=== PATIENT | male | born 1945 | race African-American/Black ===

== ENCOUNTER 2016-08-09 11:30 | Emergency (ER) | payer MEDICARE, OTHER ==
[~2016-08-09] VITALS: Wt 84.0 kg
[~2016-08-09 11:30] MED LIST: AMLO-147 PO; ASPI-535; GLIP-95 PO; LISI40TA9 PO; METF-388 PO; METO-53 PO; SMV40T PO; [UNRECOGNIZED DRUG - CODE] PO
[2016-08-09 12:24] LABS: BASOPHILS % 0.3 % (0.0-2.0); EOSINOPHILS # 0.1 10^3/ul (0.0-0.5); EOSINOPHILS % 1.1 % (0.0-7.0); HEMATOCRIT 37.3 % (42.0-52.0); HEMOGLOBIN 12.3 g/dl (14.0-18.0); LYMPHOCYTES # 2.4 10^3/ul (0.8-2.9); LYMPHOCYTES % 40.7 % (15.0-51.0); MEAN CORPUSCULAR HEMOGLOBIN 27.5 pg (29.0-33.0); MEAN CORPUSCULAR VOLUME 83.3 fl (82.0-101.0); MEAN PLATELET VOLUME 8.5 fl (7.4-10.4); MONOCYTE # 0.4 10^3/ul (0.3-0.9); MONOCYTES % 6.7 % (0.0-11.0); NEUTROPHILS % 51.2 % (39.0-77.0); PLATELET COUNT 200 10^3/UL (140-440); RED BLOOD COUNT 4.48 10^6/ul (4.70-6.10); RED CELL DISTRIBUTION WIDTH 14.8 % (11.5-14.5); UNCORRECTED WBC 5.9 10^3/ul (4.8-10.8); WHITE BLOOD COUNT 5.9 10^3/ul (4.8-10.8)
[2016-08-09] MEDS ORDERED: ASPIRIN 81 MG TAB PO ONE (12:30)
[2016-08-09 12:32] LABS: CHLORIDE 105 mmol/L (97-110); NUCLEATED RED BLOOD CELLS # 0.1 10^3/ul (0.0-0.0); POTASSIUM 4.3 mmol/L (3.5-5.1); SODIUM 145 mmol/L (135-144)
[2016-08-09 12:33] LABS: CONDITION 1; LH ANALYZER COMMENTS 1
[2016-08-09 12:34] LABS: CREATININE 0.92 mg/dl (0.61-1.24)
[2016-08-09 12:35] LABS: ANION GAP 15 (8-16); BLOOD UREA NITROGEN 16 mg/dl (7-20); CALCIUM 9.4 mg/dl (8.4-10.2); CARBON DIOXIDE 29 mmol/L (21-31); GLUCOSE 162 mg/dl (70-220)
[2016-08-09 12:38] LABS: INR 0.99; PROTIME 13.1 Sec (12.2-14.2)
[2016-08-09 12:39] LABS: PARTIAL THROMBOPLASTIN TIME 27.1 Sec (25.0-35.0)
--- NOTE | 2016-08-09 12:42 | RADRPT ---
PROCEDURE: Chest x-ray CLINICAL INDICATION: Pain. TECHNIQUE: One-view frontal. COMPARISON: 06/23/2012 FINDINGS: The cardiac silhouette is normal. No infiltrates are noted. No hilar abnormalities are identified. No pneumothorax or pleural effusions are visualized. IMPRESSION: 1. No active cardiopulmonary changes. RPTAT: HH .Aurelio Gramajo MD, MD Date Time Electronically viewed and signed by .Aurelio Gramajo MD, MD on 08/09/2016 12:42 .G/
[2016-08-09 12:48] LABS: TROPONIN-I < 0.010 ng/ml (0.00-0.12)
[2016-08-09] MEDS ORDERED: GLIP-95 PO (12:59)
[2016-08-09] MEDS ORDERED: METO25TA7 PO (13:01)
[2016-08-09] MEDS ORDERED: GABA300C16 PO (13:01)
[2016-08-09] MEDS ORDERED: TAMS-14 PO (13:02)
[2016-08-09] MEDS ORDERED: IBRU140C PO (13:03)
--- NOTE | 2016-08-09 13:04 | ERD ---
ER Documentation Chief Complaint Date/Time DATE: 08/09/16 TIME: 13:03 Chief Complaint CHEST PAIN, ONSET TODAY, MILD SOB, NO N/V, NO DIZZINESS HPI Patient is a 71-year-old male with hypertension and diabetes who presents with chest pain. He started this morning with chest pain and says that it was a bit out of the ordinary and it was a "tightness". It only lasted seconds and then went away and he said he has no pain at this time. He was concerned for possible heart attack. Upon review of old medical records the patient one previous visit to the ER in 2010. His primary doctor is Dr. Diaz and he does not have a manager validation. ROS All systems reviewed and are negative except as per history of present illness. Medications Home Meds Reported Medications Simvastatin* (Zocor*) 20 Mg Tablet, 20 MG PO QHS, #30 TAB 08/09/16 Ibrutinib (Imbruvica) 140 Mg Capsule, 420 MG PO DAILY, CAP 08/09/16 Tamsulosin Hcl* (Flomax*) 0.4 Mg Cap.er.24h, 0.4 MG PO DAILY, CAP 08/09/16 Gabapentin* (Gabapentin*) 300 Mg Capsule, 300 MG PO QID, #60 CAP 08/09/16 Metoprolol Succinate* (Toprol XL*) 25 Mg Tab.sr.24h, 25 MG PO DAILY, #30 TAB 08/09/16 Glipizide* (Glipizide*) 10 Mg Tablet, 20 MG PO BID, TAB 08/09/16 Amlodipine Besylate* (Amlodipine Besylate*) 10 Mg Tablet, 15 MG PO DAILY 06/23/12 Lisinopril* (Lisinopril*) 40 Mg Tablet, 40 MG PO BID 06/23/12 Metformin Hcl* (Metformin Hcl*) 1,000 Mg Tablet, 1000 MG PO BID 09/25/11 Discontinued Reported Medications Vitamin E (Vitamin E) 100 Unit Capsule, 100 UNIT PO DAILY 06/23/12 Metoprolol (Lopressor) 50 Mg Tablet, 50 MG PO DAILY 06/23/12 Glipizide* (Glipizide*) 10 Mg Tablet, 10 MG PO BID 2 TABS 09/25/11 Simvastatin (Simvastatin) 40 Mg Tablet, 40 MG PO HS 09/25/11 Aspirin Ec (Aspir 81) 81 Mg Tablet.dr, DAILY 09/25/11 Allergies Allergies: Coded Allergies: No Known Allergy (Unverified , 08/09/16) PMhx/Soc History of Surgery: No Anesthesia Reaction: No Hx Neurological Disorder: No Hx Respiratory Disorders: No Hx Cardiac Disorders: Yes (HTN) Hx Psychiatric Problems: No Hx Miscellaneous Medical Probl: Yes (DM ) Hx Alcohol Use: No Hx Substance Use: No Hx Tobacco Use: No Smoking Status: Never smoker FmHx Family History: No coronary disease Physical Exam Vitals Vital Signs Date Time Temp Pulse Resp B/P Pulse Ox O2 Delivery O2 Flow Rate FiO2 08/09/16 13:11 98.5 64 16 144/68 98 Room Air 08/09/16 11:42 98.1 72 17 149/71 98 Physical Exam Const: No acute distress Head: Atraumatic Eyes: Normal Conjunctiva ENT: Normal External Ears, Nose and Mouth. Neck: Full range of motion..~ No meningismus. Resp: Clear to auscultation bilaterally Cardio: Regular rate and rhythm, no murmurs Abd: Soft, non tender, non distended. Normal bowel sounds Skin: No petechiae or rashes Back: No midline or flank tenderness Ext: No cyanosis, or edema Neur: Awake and alert Psych: Normal Mood and Affect Result Diagram: 08/09/16 1210 08/09/16 1210 Results 24 hrs Laboratory Tests Test 08/09/16 12:10 Activated Partial Thromboplast Time 27.1Sec Anion Gap 15 Basophils # 0.010^3/ul Basophils % 0.3% Blood Morphology Comment Blood Urea Nitrogen 16mg/dl Calcium Level 9.4mg/dl Carbon Dioxide Level 29mmol/L Chloride Level 105mmol/L Creatinine 0.92mg/dl Eosinophils # 0.110^3/ul Eosinophils % 1.1% Glucose Level 162mg/dl Hematocrit 37.3% Hemoglobin 12.3g/dl INR International Normalized Ratio 0.99 Lymphocytes # 2.410^3/ul Lymphocytes % 40.7% Mean Corpuscular Hemoglobin 27.5pg Mean Corpuscular Hemoglobin Concent 33.0g/dl Mean Corpuscular Volume 83.3fl Mean Platelet Volume 8.5fl Monocytes # 0.410^3/ul Monocytes % 6.7% Neutrophils # 3.010^3/ul Neutrophils % 51.2% Nucleated Red Blood Cells # 0.110^3/ul Nucleated Red Blood Cells % 2.0/100WBC Platelet Count 49818^3/UL Potassium Level 4.3mmol/L Prothrombin Time 13.1Sec Prothrombin Time Ratio 1.0 Red Blood Count 4.4810^6/ul Red Cell Distribution Width 14.8% Sodium Level 145mmol/L Troponin I < 0.010ng/ml White Blood Count 5.910^3/ul Current Medications Medications (Trade) Dose Ordered Sig/Ida Route PRN Reason Start Time Stop Time Status Last Admin Dose Admin Aspirin (Aspirin) 162 mg ONCE ONCE PO 08/09/16 12:30 08/09/16 12:31 DC 08/09/16 12:31 Procedures/MDM EKG #1 read by me: Rate/Rhythm: Right bundle branch block at a rate of 66 Intervals: Normal Impression: Right bundle branch block without evidence of ischemia EKG #2 read by me: Rate/Rhythm: Right bundle branch block at a rate of 64 Intervals: Normal Impression: Right bundle branch block without evidence of ischemia Chest x-ray negative per radiology. Patient is a 71-year-old male who presents with chest pain which lasted seconds. His troponin is negative. He has 2 EKGs which are unchanged and I did review a EKG report from 2012 which showed a similar EKG pattern. I spoke with Dr. Clark who is covering for Dr. Diaz. The patient would prefer to go home at this time and Dr. Clark and I feel that this would be appropriate as long as he has close follow-up with Dr. Diaz tomorrow for evaluation. I did offer admission to the patient but he would prefer to go home. I told him he could return for repeat chest pain or any other medical problems that he may have. The patient and understand the plan and are okay for discharge at this time. He was present with a copy of his laboratory studies and chest x-ray report prior to discharge. At this point I doubt acute coronary syndrome, pneumonia, pneumothorax, pulmonary embolism, or aortic dissection. Departure Diagnosis: Primary Impression: Chest pain Chest pain type: unspecified Qualified Code: R07.9 - Chest pain, unspecified type Condition: Fair Patient Instructions: Chest Pain, Uncertain Cause Referrals: BROWN DIAZ MD (PCP) Additional Instructions: Call your primary care doctor TOMORROW for an appointment during the next 1-2 days.See the doctor sooner or return here if your condition worsens before your appointment time. AMADO BENDER MD Aug 09, 2016 13:03
[2016-08-09] MEDS ORDERED: SIMV20TA97 PO (13:05)
[2016-08-09 13:11] VITALS: BP 144/68; PULSE 64; RESP 16; TEMP 98.5
== END 2016-08-09 13:14 | disposition home or self-care (01) ==
LOC: E/R 11:30
DX: R07.9 Chest pain, unspecified (principal); E11.9 Type 2 diabetes mellitus without complications; I10 Essential (primary) hypertension; Z79.84 Long term (current) use of oral hypoglycemic drugs; Z79.82 Long term (current) use of aspirin
CPT/HCPCS: 36415; 71010; 80048; 84484; 85025; 85610; 85730; 93005